=== PATIENT | female | born 1970 | race Caucasian/White ===

== ENCOUNTER 2024-01-25 10:07 | Emergency (ER) | payer OTHER, BC ==
[~2024-01-25] VITALS: Ht 162.6 cm; Wt 83.4 kg
[2024-01-25] MEDS ORDERED: [UNRECOGNIZED DRUG - REMARK] (10:26)
[2024-01-25] MEDS ORDERED: HYDROCODON-ACE1 EA10 PO (11:01)
[2024-01-25] MEDS ORDERED: ONDANSETRON ODT4 MG PO (11:01)
[2024-01-25] MEDS ORDERED: IBUPROFEN 600 MG TAB PO ONE (11:45)
[2024-01-25] MEDS ORDERED: IBUPROFEN 600 MG TAB ONE (11:46)
[2024-01-25 12:06] VITALS: BP 120/57
== END 2024-01-25 12:06 | disposition home or self-care (01) ==
LOC: ED 10:07
DX: S82.832A Other fracture of upper and lower end of left fibula, initial encounter for closed fracture (principal); V28.49XA Other motorcycle driver injured in noncollision transport accident in traffic accident, initial encounter; Y92.481 Parking lot as the place of occurrence of the external cause
CPT/HCPCS: 73610; 99284; A9270